=== PATIENT | female | born 1970 | race Caucasian/White ===

== ENCOUNTER 2017-11-11 22:41 | Emergency (ER) | payer MEDICAID, OTHER ==
[2017-11-11] MEDS ORDERED: Propranolol 20 MG Tab PO ONE (23:19)
[2017-11-11] MEDS ORDERED: Propranolol 10 MG Tab ONE (23:31)
--- NOTE | 2017-11-12 09:33 | EDM.PDOC ---
ED HPI GENERAL MEDICAL PROBLEM - General Chief Complaint: General Stated Complaint: HIGH BLOOD PRESSURE Time Seen by Provider: 11/11/17 23:00 Source of Information: Reports: Patient History Limitations: Reports: No Limitations - History of Present Illness INITIAL COMMENTS - FREE TEXT/NARRATIVE: HAS MOVED HERE FROM [place], NOT USED BP MED FOR SEVERAL YEARS BECAUSE BP HAS BEEN NORMAL. MORE STRESS LATELY AND HOME DORCAS BP DEVICE 183/103 SO CAME TO ED FOR FURTHER EVALUATION, HAS MILD HEADACHE WHICH ATTRIBUTES TO THE EXCESS STRESS IN HER LIFE, NO HX OF ABUSE ETOHISM OR DRUG ABUSE. HAS NOT BEEN SLEEPING ELLEN OFANXIETY Location: Reports: Generalized (MILD HEADACHE WITHOUT VISUAL SYMPTOMS) Context: Reports: Other (NA) Associated Symptoms: Reports: No Other Symptoms Treatments [employer]: Reports: Other (see below) (OUT OF BP MEDS., NOT TAKEN FOR MONTHS BECAUSE BP HAS BEEN "NORMAL") back Pain Score (Numeric/FACES): 2 - Related Data Allergies Allergy/AdvReac Type Severity Reaction Status Date / Time acetaminophen [From Percocet] Allergy Rash Verified 11/11/17 23:03 oxycodone [From Percocet] Allergy Rash Verified 11/11/17 23:03 sertraline [From Zoloft] Allergy Anxiety Verified 11/11/17 23:03 Home Meds: Home Meds Propranolol [Inderal] 20 mg PO BID #30 tab 11/11/17 [Rx] Propranolol [Inderal] 20 mg PO BID #30 tab 11/11/17 [Rx] Past Medical History Other HEENT History: jaw wire, esophagus stretch Cardiovascular History: Reports: Hypertension Gastrointestinal History: Reports: GERD RN DISCHARGE History: Reports: Psychiatric History: Reports: Anxiety Social & Family History - Family History Family Medical History: Unobtainable - Tobacco Use Smoking Status *Q: Never Smoker - Caffeine Use Caffeine Use: Reports: Soda, Tea - Recreational Drug Use Recreational Drug Use: No ED ROS GENERAL - Review of Systems Review Of Systems: See Below Constitutional: Reports: No Symptoms HEENT: Reports: No Symptoms Respiratory: Reports: No Symptoms Cardiovascular: Reports: No Symptoms Endocrine: Reports: No Symptoms GI/Abdominal: Reports: No Symptoms : Reports: No Symptoms Musculoskeletal: Reports: No Symptoms Skin: Reports: No Symptoms Neurological: Reports: No Symptoms, Headache Psychiatric: Reports: No Symptoms Hematologic/Lymphatic: Reports: No Symptoms ED EXAM, GENERAL - Physical Exam Exam: See Below Exam Limited By: No Limitations General Appearance: Alert, Mild Distress Ears: Normal External Exam Ear Exam: Bilateral Ear: TM normal Nose: Normal Inspection Throat/Mouth: Normal Inspection Head: Atraumatic Neck: Normal Inspection Cardiovascular: Normal Peripheral Pulses, Regular Rate, Rhythm, No Edema, No Gallop, No JVD, No Murmur GI/Abdominal: Normal Bowel Sounds Rectal (Female) Exam: Deferred Back Exam: Normal Inspection Extremities: Normal Inspection Neurological: Alert, Oriented, CN II-XII Intact, Normal Cognition, Normal Gait, Normal Reflexes, No Motor/Sensory Deficits Psychiatric: Normal Affect Skin Exam: Warm, Dry, Intact, Normal Color Lymphatic: No Adenopathy Course - Vital Signs Last Recorded V/S: Last Vital Signs Temp 36.7 C 11/11/17 23:55 Pulse 92 11/11/17 23:55 Resp 17 11/11/17 23:55 BP 139/95 H 11/11/17 23:55 Pulse Ox 99 11/11/17 23:55 - Orders/Labs/Meds Meds: Medications Discontinued Medications Generic Name Dose Route Start Last Admin Trade Name Dinesh PRN Reason Stop Dose Admin Propranolol HCl 20 mg 11/11/17 23:19 11/11/17 23:40 Inderal PO 11/11/17 23:20 20 mg ONETIME ONE Administration Departure - Departure Time of Disposition: 23:40 (HYPERTENSIONSTABILAZE TO 140/OVE 60'S BEFORE DISMISSEDA B FATER RECEIVED LOPRESSOR IV NAD PO METOPROLOL 50 MG) Disposition: Home, Self-Care 01 Clinical Impression: Hypertensive urgency, Anxiety - Discharge Information *PRESCRIPTION DRUG MONITORING PROGRAM REVIEWED*: No *COPY OF PRESCRIPTION DRUG MONITORING REPORT IN PATIENT MASSIMO: No Prescriptions: Propranolol [Inderal] 20 mg PO BID #30 tab Propranolol [Inderal] 20 mg PO BID #30 tab Instructions: Panic Attack, [id number], Hypertension, [id number] Referrals: PCP,None [Primary Care Provider] - Forms: ED Department Discharge Additional Instructions: your anxiety can be treated with a medicine that will not only control bp abut will decrease your anxiety and also help with stress Inderol 20 mg 2 x 's daily try of 10-15 days follow up with your MD 1 week I did not prescribe a benzodiazepine medication for sedation and anxiety for that is a medicine that fani need to have your MD prescribe and follow.
== END 2017-11-11 23:56 | disposition home or self-care (01) ==
LOC: FB.ED 22:41
DX: I16.0 Hypertensive urgency (principal); F41.9 Anxiety disorder, unspecified; I10 Essential (primary) hypertension
CPT/HCPCS: 99283; A9270